=== PATIENT | male | born 1990 | race Caucasian/White ===

== ENCOUNTER 2017-07-16 18:53 | Emergency (ER) | payer OTHER ==
[~2017-07-16] VITALS: Ht 172.7 cm; Wt 93.9 kg
[~2017-07-16 18:53] MED LIST: BENA10TA10; [UNRECOGNIZED DRUG - CODE]
[2017-07-16 19:00] VITALS: BP 139/83
[2017-07-16 19:33] VITALS: BP 134/93
== END 2017-07-16 19:33 | disposition home or self-care (01) ==
LOC: MED 18:53
DX: A08.4 Viral intestinal infection, unspecified (principal); I10 Essential (primary) hypertension; Z79.899 Other long term (current) drug therapy; Z88.2 Allergy status to sulfonamides; Z88.8 Allergy status to other drugs, medicaments and biological substances
CPT/HCPCS: 81002; 99283

== ENCOUNTER 2018-02-03 03:59 | Emergency (ER) | payer OTHER ==
[~2018-02-03] VITALS: Ht 162.6 cm; Wt 100.7 kg
[~2018-02-03 03:59] MED LIST changes: -BENA10TA10; +BENA10TA10 PO
--- NOTE | 2018-02-03 04:04 | NUR ---
PT TAKEN TO BED 3
[2018-02-03 04:05] VITALS: BP 129/100
--- NOTE | 2018-02-03 04:05 | NUR ---
Dr. Craft evaluating patient at bedside.
--- NOTE | 2018-02-03 04:05 | NUR ---
ASSUMED CARE OF PT AT THIS TIME. C/O COUGH, FEVER, SORE THROAT, AND N/V X 7 HOURS. AAOX3; PATIENT STATES PAIN OF 0/10; VSS; PATIENT POSITIONED FOR COMFORT; HOB ELEVATED; BEDRAILS UP X2; BED DOWN. ER MD MADE AWARE OF PT STATUS. WILL CONTINUE TO MONITOR.
[2018-02-03] MEDS ORDERED: IBUPROFEN CHILDRENS 100 MG/5 ML UDC PO ONE (04:15)
--- NOTE | 2018-02-03 04:28 | NUR ---
Dr. Craft at bedside for procedure.
--- NOTE | 2018-02-03 04:28 | NUR ---
ASSISTED DR KATZ WITH PROCEDURE
[2018-02-03] MEDS ORDERED: ERGO2000 PO (04:30)
[2018-02-03] MEDS ORDERED: ACET-7756 PO (04:30)
[2018-02-03] MEDS ORDERED: FISH100053 PO (04:30)
[2018-02-03] MEDS ORDERED: [UNRECOGNIZED DRUG - CODE] PO (04:30)
[2018-02-03] MEDS ORDERED: ASPI81EC97 PO (04:30)
[2018-02-03] MEDS ORDERED: METO50TE2 PO (04:30)
--- NOTE | 2018-02-03 04:34 | NUR ---
X-Ray at bedside.
[2018-02-03 05:09] LABS: APPEARANCE,URINE CLEAR (CLEAR); BILIRUBIN,URINE NEGATIVE (NEGATIVE); BLOOD, URINE 1+ (NEGATIVE); COLOR,URINE YELLOW (YELLOW); LEUKOCYTE ESTERASE ,URINE NEGATIVE (NEGATIVE); NITRITE, URINE NEGATIVE (NEGATIVE); UGLUCOSE NEGATIVE (NEGATIVE)
--- NOTE | 2018-02-03 05:15 | NUR ---
BLOOD DRAWN AND SENT TO THE LAB AT THIS TIME.
[2018-02-03 05:34] LABS: HEMATOCRIT 42.9 % (36-52); HEMOGLOBIN 14.3 g/dL (12.0-18.0); MEAN CORPUSCULAR HEMOGLOBIN 30 pg (27-31); MEAN CORPUSCULAR HGB CONC 33 g/dL (33-37); MEAN CORPUSCULAR VOLUME 89.5 fL (80-94); PLATELET COUNT (AUTO) 149 K/uL (140-450); RED BLOOD CELL COUNT(AUTO) 4.79 MIL/uL (4.20-6.10); WHITE BLOOD COUNT (AUTO) 8.2 K/uL (4.8-10.8)
[2018-02-03 05:45] LABS: RBC,URINE 0-5 (RARE) /HPF (0-5); WBC,URINE NONE SEEN /HPF (0-5)
[2018-02-03 05:55] LABS: EOSINOPHILS % (MANUAL) 2 % (0-4); LYMPHOCYTES % (MANUAL) 3 % (20-46); MONOCYTES % (MANUAL) 8 % (5-12)
[2018-02-03 05:59] LABS: ANION GAP 13.2 (8-16); CARBON DIOXIDE 25.7 mmol/L (21-32); CREATININE 1.1 mg/dL (0.7-1.3); POTASSIUM 3.9 mmol/L (3.5-5.1)
[2018-02-03 06:00] VITALS: BP 130/94
--- NOTE | 2018-02-03 06:00 | NUR ---
Patient discharged with v/s stable. Written and verbal after care instructions given and explained. Patient verbalized understanding. Wheel Chair Assisted with by parent. All questions addressed prior to discharge. Advised to follow up with PMD.
[2018-02-03 06:03] LABS: ALBUMIN 3.5 g/dL (3.4-5.0); TOTAL BILIRUBIN 0.7 mg/dL (0.0-1.0)
== END 2018-02-03 06:00 | disposition home or self-care (01) ==
LOC: MED 03:59
DX: B34.9 Viral infection, unspecified (principal); E20.9 Hypoparathyroidism, unspecified; I10 Essential (primary) hypertension; Z88.6 Allergy status to analgesic agent; Z88.5 Allergy status to narcotic agent; Z88.2 Allergy status to sulfonamides; Z79.82 Long term (current) use of aspirin; Z79.899 Other long term (current) drug therapy
CPT/HCPCS: 36415; 71045; 80053; 81001; 85025; 87804; 99284; Q0092

== ENCOUNTER 2018-12-21 21:28 | Emergency (ER) | payer OTHER ==
[~2018-12-21] VITALS: Ht 170.2 cm; Wt 99.3 kg
[~2018-12-21 21:28] MED LIST changes: +ACET-7756 PO; +ASPI81EC97 PO; -BENA10TA10 PO; +BENA10TA17 PO; +ERGO2000 PO; +FISH100053 PO; +METO50TE2 PO; -[UNRECOGNIZED DRUG - CODE]; +[UNRECOGNIZED DRUG - CODE] PO
[2018-12-21 21:30] VITALS: BP 176/91
--- NOTE | 2018-12-21 21:40 | NUR ---
pt presents w/c/o rt toe pain s/p twisting it in shower earlier tonight. +cms. full ROM. skin color wnl. cap refill<3.
--- NOTE | 2018-12-21 21:59 | NUR ---
PT WAS TAKEN TO BED #7 BY WHEEL CHAIR
--- NOTE | 2018-12-21 22:08 | NUR ---
X-Ray at bedside.
[2018-12-21 22:55] VITALS: BP 138/74
--- NOTE | 2018-12-21 22:55 | NUR ---
DISCHARGE PAPERS GIVEN TO MOTHER. 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 INSTRUCTED TO F/U WITH PCP AND WHEN TO RETURN TO ER. DISCHARGE INSTRUCTIONS EXPLAINED. ALL QUESTIONS ANSWERED. MOTHER VERBALLIZED UNDERSTANDING OF DC INSTRUCIONS. ALL QEUSTIONS ANSWERED.
== END 2018-12-21 22:55 | disposition home or self-care (01) ==
LOC: MED 21:28
DX: S90.121A Contusion of right lesser toe(s) without damage to nail, initial encounter (principal); I10 Essential (primary) hypertension; Z98.890 Other specified postprocedural states; Z79.899 Other long term (current) drug therapy; Z79.82 Long term (current) use of aspirin; Z88.2 Allergy status to sulfonamides; Z88.5 Allergy status to narcotic agent; Z88.6 Allergy status to analgesic agent; X50.1XXA Overexertion from prolonged static or awkward postures, initial encounter; Y93.89 Activity, other specified; Y92.89 Other specified places as the place of occurrence of the external cause; Y99.8 Other external cause status
CPT/HCPCS: 73660; 99283; Q0092